=== PATIENT | female | born 1970 | race Caucasian/White ===

== ENCOUNTER 2016-12-31 06:20 | Day surgery (SDC) | payer BC ==
--- NOTE | 2016-12-10 17:01 | P.GSHP ---
History of Present Illness H&P Date: 12/10/16 Chief Complaint: Hemorrhoids with hypertrophied papilla Patient seen in the office complaining of a polypoid skin tag was diagnosed and identified by GI 2 years ago. She has had some frequent rectal bleeding. She has frequent diarrhea as well. Recently she has noticed more problems with mucousy incontinence. - Review of Systems Comment: Patient denies any acute changes in hearing or vision, no earache, no headache, no sore throat, no dysphagia, no odynophagia, no chest pain, no shortness of breath, no melena, no recent unexplained weight loss Surgical - Exam GENERAL: Well-developed, well-nourished HEENT: Normocephalic, sclera nonicteric, EOM intact, no swelling CHEST: No deformities ABDOMEN: Soft, nontender, nondistended EXTREMITIES: No deformities, motor grossly intact NEURO: Awake and alert Rectal: Anterior hypertrophied anal papilla with enlarged External hemorrhoids anterior Assessment and Plan (1) Hemorrhoidal skin tag Narrative/Plan: We'll proceed with excision of the symptomatic anterior hemorrhoidal complex and associated Hypertrophied anal papilla. Risks of bleeding, infection, recurrence, stenosis, incontinence, persistent diarrhea were discussed. She understands and wishes to proceed. Status: Acute
[2016-12-28 16:39] VITALS: BMI 27.3
[~2016-12-31 06:20] MED LIST: DEXAMETHASONE SOD PHOSPHATE 10 MG/ML 1 ML VIAL IV ONE; HEPARIN SODIUM,PORCINE 5,000 UNIT/ML 1 ML VIAL SQ ONE; HYDROmorphone 1 MG/ML 1 ML SYRINGE IVP PRN; LACTATED RINGERS 1,000 ML IV SCH; MIDAZOLAM 2 MG/2 ML VIAL IV PRN; MINERAL OIL 133 ML ENEMA RECTAL ONE; ONDANSETRON 4 MG/2 ML VIAL IVP ONE; Pre Op ABX Message 1 EACH MISC MISCELLANE ONE; SCOPOLAMINE 1.5MG/72HR PATCH TRANSDERM ONE
[2016-12-31 06:46] VITALS: RESP 16
[2016-12-31] MEDS ORDERED: LIDOCAINE 1% 20 ML VIAL (10MG/ML) FOR IV START INTRADERMA ONE (07:00)
[2016-12-31 07:13] LABS: Basophils % (A) 1 %; CHCM 36.5; Eosinophils # (A) 0.2 k/uL (0-0.7); Eosinophils % (A) 3 %; HCT 35.6 % (34.0-46.0); HDW 2.52; HGB 12.9 gm/dL (11.4-16.0); Luc # (Auto) 0.13; Luc % (Auto) 2; Lymphocytes # (A) 2.1 k/uL (1.0-4.8); Lymphocytes % (A) 38 %; MCH 32.9 pg (25.0-35.0); MCHC 36.2 g/dL (31.0-37.0); MCV 90.8 fL (80.0-100.0); Mean Platelet Volume 6.4; Monocytes # (A) 0.4 k/uL (0-1.0); Monocytes % (A) 7 %; Neutrophils # (A) 2.7 k/uL (1.3-7.7); Neutrophils % (A) 49 %; RBC 3.92 m/uL (3.80-5.40); RDW 12.9 % (11.5-15.5); WBC 5.4 k/uL (3.8-10.6); WBC (Perox) 5.48
[2016-12-31 07:26] LABS: Potassium 3.7 mmol/L (3.5-5.1)
[2016-12-31] MEDS ORDERED: MIDAZOLAM 2 MG/2 ML VIAL ONE (08:10)
[2016-12-31] MEDS ORDERED: fentaNYL (PF) 50 MCG/ML 2 ML AMP ONE (08:10)
[2016-12-31] MEDS ORDERED: PROPOFOL 10 MG/ML 20 ML VIAL IV ONE (08:10)
[2016-12-31] MEDS ORDERED: SODIUM CHLORIDE 0.9% 50 ML with ceFAZolin 2,000 MG IV ONE ×2 (08:36)
[2016-12-31] MEDS ORDERED: BUPIVACAIN-EPI 0.25%-1:200,000 30 ML VIAL SQ ONE ×2 (08:41)
[2016-12-31] MEDS ORDERED: GELATIN SPONGE,ABSORB (LARGE) 1 EACH SPONGE TOPICAL ONE (08:48)
--- NOTE | 2016-12-31 09:10 | P.PCN ---
Date of Procedure: 12/31/16 Preoperative Diagnosis: Postoperative Diagnosis: Procedure(s) Performed: PREOPERATIVE DIAGNOSIS: Internal and external hemorrhoid with hypertrophied polyp POSTOPERATIVE DIAGNOSIS: Same PROCEDURE: Hemorrhoidectomy SURGEON: Estuardo EBL: Minimal ANESTHESIA: Spinal COMPLICATIONS: None OPERATIVE PROCEDURE: Patient was placed prone on the operating table. The perianal location was prepped and draped in usual sterile fashion after the patient was placed in the prone jackknife position. The anterior hemorrhoidal complex with the hypertrophied polypoid tissue was seen. This was grasped with a hemostat and retracted externally. Using the rectal retractor the hemorrhoidal column was well visualized. The proximal portion of the hemorrhoidal column was ligated using a 3-0 chromic stitch. Following that a scalpel was used to create our external incision on the perianal skin and this was extended into the anal canal. Electrocautery was also utilized. The patient's anal sphincter was Intact. Hemorrhoidal column was then fully excised using the Harmonic scalpel. The defect was closed using the previously placed 3-0 chromic stitch in a running locking manner. A single area of bleeding along our suture line was controlled using a single [id number] 3- 0 Vicryl stitch. The area was infiltrated with 1% Marcaine solution. A Gelfoam was rolled and placed within the distal rectum and anal region. A outer dressing was applied as well. DISPOSITION: Stable to recovery room Implants: Indications for Procedure: Operative Findings: Description of Procedure:
[2016-12-31 09:11] VITALS: TEMP 97.2
[2016-12-31] MEDS ORDERED: HYDROcodone/APAP 5-325MG 1 EACH TAB PO PRN (09:27)
[2016-12-31] MEDS ORDERED: NALOXONE 0.4 MG/ML 1 ML VIAL IV PRN (09:27)
[2016-12-31] MEDS ORDERED: LACTATED RINGERS 1,000 ML IV ONE (09:32)
[2016-12-31] MEDS ORDERED: HYDROcodone/APAP 5-325MG 1 EACH TAB PO ONE (11:04)
[2016-12-31 11:44] VITALS: BP 118/84; PULSE 76
== END 2016-12-31 12:05 | disposition home or self-care (01) ==
LOC: OR 06:20
PROVIDERS: ATTEND Surgery
DX: K64.8 Other hemorrhoids (principal); K64.4 Residual hemorrhoidal skin tags; I10 Essential (primary) hypertension; K21.9 Gastro-esophageal reflux disease without esophagitis; Z79.899 Other long term (current) drug therapy
CPT/HCPCS: 81025; 88304; 80051; 85025; 46260; J2250; J1644; J1100; J2405; J3010; J0690; J2704

== ENCOUNTER → 2017-04-14 | Outpatient (CLI) | payer BC ==
[2017-04-14 18:57] LABS: Basophils % (A) 1 %; CH 33.6; CHCM 35.2; Eosinophils # (A) 0.1 k/uL (0-0.7); Eosinophils % (A) 1 %; HCT 39.1 % (34.0-46.0); HGB 13.2 gm/dL (11.4-16.0); Luc % (Auto) 2; Lymphocytes # (A) 1.8 k/uL (1.0-4.8); Lymphocytes % (A) 27 %; MCH 32.5 pg (25.0-35.0); MCHC 33.8 g/dL (31.0-37.0); MCV 96.1 fL (80.0-100.0); Mean Platelet Volume 8.5; Monocytes # (A) 0.3 k/uL (0-1.0); Monocytes % (A) 4 %; Neutrophils # (A) 4.3 k/uL (1.3-7.7); Neutrophils % (A) 65 %; RBC 4.07 m/uL (3.80-5.40); RDW 14.2 % (11.5-15.5); WBC 6.5 k/uL (3.8-10.6); WBC (Perox) 6.44
[2017-04-14 19:00] LABS: ALT 37 U/L (9-52); AST 31 U/L (14-36); Alkaline Phosphatase 102 U/L (38-126); Anion Gap 11 mmol/L; Blood Urea Nitrogen 10 mg/dL (7-17); Calcium 9.7 mg/dL (8.4-10.2); Carbon Dioxide 26 mmol/L (22-30); Chloride 101 mmol/L (98-107); Glucose 102 mg/dL (74-99); HDL Cholesterol 79 mg/dL (40-60); Non-African American GFR(MDRD) >60 (>60 ml/min/1.73 sqM); Potassium 4.3 mmol/L (3.5-5.1); Sodium 138 mmol/L (137-145); Total Bilirubin 0.8 mg/dL (0.2-1.3); Total Protein 7.3 g/dL (6.3-8.2)
[2017-04-14 19:21] LABS: Cholesterol 327 mg/dL (<200)
[2017-04-14 19:48] LABS: Vitamin B12 416 pg/mL (239-931)
== END ==
LOC: MMGSC 14:12
PROVIDERS: ATTEND Family Medicine
DX: R53.83 Other fatigue (principal); R63.5 Abnormal weight gain
CPT/HCPCS: 36415; 80053; 80061; 82306; 82607; 84439; 84443; 85025

== ENCOUNTER → 2019-05-25 | Outpatient (CLI) | payer BC ==
[2019-05-25 15:09] LABS: HCT 38.9 % (34.0-46.0); MCH 29.7 pg (25.0-35.0); MCHC 33.3 g/dL (31.0-37.0); Mean Platelet Volume 5.6; Platelet Count 324 k/uL (150-450); RBC 4.37 m/uL (3.80-5.40); WBC 5.3 k/uL (3.8-10.6)
[2019-05-25 15:22] LABS: Appearance,BF Hazy; Nucleated Cells, Body Fluid 40 /uL; RBC, Body Fluid 1830 /uL
[2019-05-25 15:27] LABS: Mononuclear WBC,Body Fluid 94 %; Polynuclear WBC,Body Fluid 6 %; Total Cells Counted,Body Fluid 100
[2019-05-25 18:54] LABS: Erythrocyte Sedimentation Rate 8 mm/hr (0-20)
[2019-05-25 21:20] LABS: Rheumatoid Factor 10 IU/mL (0-15); Streptolysin O Ab(ASO) 36 IU/mL (0-200)
[2019-05-25 21:46] LABS: C Reactive Protein <0.4 mg/dL (0.0-0.8)
[2019-05-26 09:12] LABS: HLA B27 NEGATIVE
== END | disposition home or self-care (01) ==
LOC: LABWHC1 14:01
PROVIDERS: ATTEND Orthopaedic Surgery
DX: M79.671 Pain in right foot (principal); M21.41 Flat foot [pes planus] (acquired), right foot; M25.572 Pain in left ankle and joints of left foot; M25.872 Other specified joint disorders, left ankle and foot; M21.42 Flat foot [pes planus] (acquired), left foot; G57.61 Lesion of plantar nerve, right lower limb
CPT/HCPCS: 36415; 84443; 85027; 85652; 86038; 86060; 86140; 86431; 86618; 86812; 87070; 87075; 87205; 89050; 89060